=== PATIENT | female | born 1935 | race Caucasian/White ===

== ENCOUNTER 2017-03-18 19:00 | Emergency (ER) | payer MEDICARE, OTHER ==
[~2017-03-18] VITALS: Ht 175.3 cm; Wt 90.0 kg
[~2017-03-18 19:00] MED LIST: ATEN50TA PO; ATOR10TA66 PO; CHOL10008 PO; FUR20 PO; LANS30CA PO; LEVO100T45 PO; MECL-114 PO; MULT1CAP33 PO; OMEG-38 PO; OXYC1TAB24 PO; SERT100T9 PO; T2T PO; TROS20TA4 PO; WARF5TAB9 PO; [UNRECOGNIZED DRUG - CODE] MM
[2017-03-18 19:13] VITALS: BP 131/96; PULSE 108; RESP 20; O2SAT 96
--- NOTE | 2017-03-18 19:29 | ED.REPORT ---
HPI-Trauma Minor / Fall Date of Service March 18, 2017 ED Provider: Dylon Almazan MD 81 y/o female with a hx of DVT and PE presents to the ED due to head injury, onset 45 minutes ago. The pt was trying to put something on a chair when she tripped and struck her head against the wall. She denies bleeding, sore neck, LOC, dizziness numbness and tingling in extremities. The pt is currently on Coumadin. Nursing Notes Stated Complaint: FELL & HIT HEAD Chief Complaint: Head, Face, Neck Trauma Nursing Notes Reviewed: Yes Allergies: Coded Allergies: lisinopril (Verified Allergy, Unknown, UNKNOWN, 03/18/17) Scheduled Atenolol (Atenolol) 50 Mg Tablet 50 MG PO DAILY Atorvastatin Calcium (Atorvastatin Calcium) 10 Mg Tablet 10 MG PO DAILY Cholecalciferol (Vitamin D3) (Vitamin D3) 1,000 Unit Tab.chew 1,000 UNIT PO DAILY Levothyroxine (Levoxyl) 100 Mcg Tablet 100 MCG PO DAILY Multivitamin (Multivitamins) 1 Each Capsule 1 EACH PO DAILY [place]-3/Dha/Epa/Fish Oil (Fish Oil 1,000 mg Softgel) 1 Each Capsule 1 EACH PO DAILY Sertraline HCl (Sertraline) 100 Mg Tablet 100 MG PO DAILY Trospium Chloride (Trospium Chloride) 20 Mg Tablet 20 MG PO BID Warfarin Sodium (Jantoven) 5 Mg Tablet 5 MG PO ,,,Fr,Sa Warfarin Sodium (Jantoven) 5 Mg Tablet 2.5 MG PO fri, Scheduled PRN Acetaminophen/Codeine 300-15mg (Acetaminophen/Codeine 300-15mg) 1 Each Tablet 1 TAB PO q6 hours PRN PRN For Pain Furosemide (Furosemide) 20 Mg Tab 10-20 MG PO DAILY PRN PRN foot/ankle swelling Lansoprazole (Lansoprazole) 30 Mg Capsule.dr 30 MG PO DAILY PRN PRN For Dyspepsia or Heartburn Meclizine (Bonine) 25 Mg Tab.chew 25 MG PO TID PRN PRN For Dizziness Saliva Substitution Combo No.9 (Biotene) 1,000 Ml Mouthwash 1 DOSE MM DAILY PRN PRN dry mouth oxyCODONE-Acetaminophen 5-325 mg (oxyCODONE-Acetaminophen 5-325 mg) 1 Each Tablet 1 TAB PO Q6H PRN PRN For Pain General Time Seen by MD: 19:22 Chief Complaint Fall Hx Obtained From: Patient Arrived By: Walk-in Onset Occurred: 46 - 59 minutes ago Symptom Duration: Since onset Caused by: Fall on ground Location: Head Quality: Painful Severity: Current: Mild Severity: Maximum: Mild Recent Healthcare: No recent doctor visit Similar Sx Previous: No Past Medical History Past Medical History Notes: Code Status: DNR, DNI PCP: Nicci SANTANA Past Medical History Anticoagulated on Warfarin DVT PE Hypothyroid Endometriosis Breast CA Skin CA - face, multiple removals Reports: Cancer, GERD, Hyperlipidemia, Hypertension Reports: Atrial fibrillation, Thyroid disease Past Surgical History Right breast segmentectomy. Right axillary node dissection. Reports: Knee replacement Smoking History Former Smoker Social History Other Social History: Good social support, Lives alone, Local resident Ambulatory Status Walker Review of Systems Musculoskeletal: Denies: Neck pain Neurologic: Denies: Change LOC, Dizziness, Focal weakness, Numbness Complete sys rev & neg: except as marked. Physical Exam Initial Vital Signs Vital Signs (First) Date Time Temp Pulse Resp B/P Pulse Ox O2 Delivery O2 Flow Rate FiO2 03/18/17 19:13 36.7 108 20 131/96 96 Room Air Initial VS: Reviewed ENT: Mucous membranes moist, Conjunctiva normal, No scleral icterus Respiratory: Breath sounds normal, No respiratory distress Cardiovascular: Regular rate & rhythm, Heart sounds normal Abdomen / GI: Soft, Non-tender Extremities: Vascular intact, Neuro intact, No swelling, No tenderness Skin: Warm, Dry, No cyanosis Psychiatric: Mood/affect normal, Behavior normal, Normal thought content General/Constitutional: Awake, Alert, No acute distress, Well appearing, Cooperative, Not toxic appearing Neck: Atraumatic, Supple, Full range of motion Head / Eyes: Normocephalic, PERRL, EOMI Right occipital bump. Neurologic: Oriented X3, Speech NL, No motor deficits, No sensory deficits Interpretation & Diagnostics Lab Results Interpretation Result Diagram: 03/18/171941 Test 03/18/17 19:42 White Blood Count 8.4th/mm3 (3.8-10.1) Red Blood Count 4.49mil/mm3 (3.90-5.20) Hemoglobin 13.7g/dL (12.0-15.6) Hematocrit 43.1% (35.0-46.0) Mean Corpuscular Volume 96.0fL (81-100) Mean Corpuscular Hemoglobin 30.5pg (27.0-35.0) Mean Corpuscular Hemoglobin Concent 31.8% (32.0-37.0) Red Cell Distribution Width 14.2% (12.3-15.4) Platelet Count 198bil/L (150-400) Neutrophils (%) (Auto) 65.2% (40-74) Lymphocytes (%) (Auto) 23.6% (14-46) Monocytes (%) (Auto) 7.6% (4-12) Eosinophils (%) (Auto) 3.1% (0-5) Basophils (%) (Auto) 0.4% (0-3) Prothrombin Time 10.6sec (8.1-12.5) Prothromb Time International Ratio 0.99ratio Hold Sparks Top Tube Received (Received) CT Head Interpretation IMPRESSION: No acute intracranial process. Right maxillary sinus disease. Dictated by: Rizwan Zamora M.D. on 03/18/2017 at 20:00 Approved by: Rizwan Zamora M.D. on 03/18/2017 at 20:03 Study: Head CT no contrast Interpretation / Wet Read by: Interpret - Radiologist Re-Eval/Medical Decision Source of Hx: Old records Re-Evaluation/Progress : Time of Eval: 20:15 Patient Status: Condition improved Re-Evaluation/Progress Note: Rechecked pt. Discussed lab, imaging results and diagnosis. Informed the pt of the plan to discharge. Pt understands and agrees with plan. F/U instructions and RTER warning given. All questions addressed. Counseled Regarding: Diagnosis, Lab results, Need for follow-up, When/why to return to ED Discharge & Departure Impression: Primary Impression: Fall from ground level Additional Impressions: Contusion of scalp Encounter type: initial encounter Qualified Code: S00.03XA - Contusion of scalp, initial encounter Subtherapeutic international normalized ratio (INR) Disposition: Home Discharge Condition All VS Reviewed: Yes Additional Instructions: In the emergency department tonight we evaluated you for a ground-level fall while on Coumadin. CT scan did not show any brain injury. On blood work prothrombin time is subtherapeutic. This means that you are not adequately anticoagulated. Take warfarin as prescribed and contact your primary care doctor tomorrow with regards to warfarin dosage and recheck of INR. If you experience a headache nausea unsteadiness on her feet in the next couple weeks return to the emergency department immediately for recheck, it is possible to have delayed bleeding around the brain. Thank you for trusting is with your care tonight Referrals: Nicci Garvin (PCP) Scribe Attestation Portions of this note were transcribed by Kirti Juan. I, , personally performed the history, physical exam and medical decision-making;I reviewed and confirmed the accuracy of the information in the transcribed note. Signed by Neno Asher. 03/18/172022 copies to: Nicci Garvin Donald L MD March 18, 2017 19:29 Kirti Juan March 18, 2017 19:33
[2017-03-18 19:52] LABS: BASOPHILS % (AUTO) 0.4 % (0-3); EOSINOPHILS % (AUTO) 3.1 % (0-5); MONOCYTES % (AUTO) 7.6 % (4-12); Mean Corpuscular Hemoglobin 30.5 pg (27.0-35.0); NEUTROPHILS % (AUTO) 65.2 % (40-74); Platelet Count 198 bil/L (150-400)
[2017-03-18 20:05] LABS: INR 0.99 ratio
--- NOTE | 2017-03-18 20:05 | DRSVH ---
PROCEDURE: CT BRAIN WITHOUT CONTRAST ([id number]) INDICATIONS: GLF, hit head, on coumadin TECHNIQUE: Noncontrast 4.5 mm thick angled axial sections acquired from the foramen magnum to the vertex, with c oronal reformats. COMPARISON: None. FINDINGS: Image quality: Excellent. CSF spaces: Basal cisterns are patent. No extra-axial fluid collections. The ventricles are symmet marilynn in size and shape. Brain: No intracranial bleeds or masses. There is cerebral volume loss for age, with resultant vent ricular and sulcal prominence. There are periventricular and deep white matter chronic small vessel ischemic changes. There is intracranial internal carotid artery atherosclerosis. Skull and face: Calvarium and visualized facial bones appear intact, without suspicious lesions. Sinuses: Partial opacification of the right maxillary sinus IMPRESSION: No acute intracranial process. Right maxillary sinus disease. Dictated by: Rizwan Zamora M.D. on 03/18/2017 at 20:00 Approved by: Rizwan Zamora M.D. on 03/18/2017 at 20:03
[2017-03-18 20:34] VITALS: BP 117/89; PULSE 92; RESP 18; O2SAT 97
== END 2017-03-18 20:36 | disposition home or self-care (01) ==
LOC: SED 19:00
DX: S00.03XA Contusion of scalp, initial encounter (principal); W01.198A Fall on same level from slipping, tripping and stumbling with subsequent striking against other object, initial encounter; Y93.89 Activity, other specified; Y92.019 Unspecified place in single-family (private) house as the place of occurrence of the external cause; Y99.8 Other external cause status; R79.1 Abnormal coagulation profile; I11.9 Hypertensive heart disease without heart failure; I48.91 Unspecified atrial fibrillation; K21.9 Gastro-esophageal reflux disease without esophagitis; E78.5 Hyperlipidemia, unspecified; E03.9 Hypothyroidism, unspecified; Z79.01 Long term (current) use of anticoagulants; Z87.891 Personal history of nicotine dependence; Z88.8 Allergy status to other drugs, medicaments and biological substances